=== PATIENT | male | born 1940 | race Caucasian/White ===

== ENCOUNTER 2017-08-08 09:44 | Emergency (ER) | payer MEDICARE ==
[2017-08-08] MEDS ORDERED: FAMOTIDINE 20 MG/2 ML VIAL IV STA (10:05)
[2017-08-08] MEDS ORDERED: methylPREDNISolone SOD SUCCI 125 MG/2 ML VIAL IV STA (10:05)
[2017-08-08] MEDS ORDERED: diphenhydrAMINE 50 MG/ML 1 ML VIAL IVP STA (10:05)
--- NOTE | 2017-08-08 10:20 | ED ---
General Adult HPI - General Chief complaint: Allergic Reaction Stated complaint: Allergic reaction Time Seen by Provider: 08/08/17 09:58 Source: patient, family, RN notes reviewed Mode of arrival: ambulatory Limitations: no limitations - History of Present Illness Initial comments: Patient is a 76-year-old male who presents emergency room today with a chief complaint of hives. He does admit that symptoms started 2 days ago. States that he didn't or it began having a little cough later in the night. States he woke up in the middle of night with rash to his back and abdomen. States he did go to an urgent care. States he was given a shot steroids. States been taking Benadryl last dose was at 1 AM. States that he's been on a Medrol Dosepak to 1 pill this morning. Patient does admit to some irritation to his throat. Patient denies any other complaints or symptoms. Denies any difficulty breathing or swallowing. Patient denies any recent fever, chills, shortness of breath, chest pain, back pain, abdominal pain, nausea or vomiting, numbness or tingling, dysuria or hematuria, constipation or diarrhea, headaches or visual changes, or any other complaints. - Related Data Home Medications Medication Instructions Recorded Confirmed Ibuprofen [Motrin Ib] 800 mg PO TID PRN 08/08/17 08/08/17 Lisinopril [Zestril] 20 mg PO DAILY 08/08/17 08/08/17 Previous Rx's Medication Instructions Recorded predniSONE 20 mg PO BID #10 tab 08/08/17 Allergies Allergy/AdvReac Type Severity Reaction Status Date / Time No Known Allergies Allergy Verified 08/08/17 10:40 Review of Systems ROS Statement: Those systems with pertinent positive or pertinent negative responses have been documented in the HPI. ROS Other: All systems not noted in ROS Statement are negative. Past Medical History Past Medical History: Hypertension Additional Past Medical History / Comment(s): back pain History of Any Multi-Drug Resistant Organisms: None Reported Past Surgical History: Appendectomy, Orthopedic Surgery Additional Past Surgical History / Comment(s): cataract surgery, both knees replaced Past Psychological History: No Psychological Hx Reported Smoking Status: Never smoker Past Alcohol Use History: None Reported Past Drug Use History: None Reported General Exam - General Exam Comments Initial Comments: General: The patient is awake and alert, in no distress, and does not appear acutely ill. Eye: Pupils are equal, round and reactive to light, extra-ocular movements are intact. No nystagmus. There is normal conjunctiva bilaterally. No signs of icterus. Ears, nose, mouth and throat: There are moist mucous membranes and no oral lesions. Uvula midline. Patient's also difficulty. Tolerating oral secretions. Neck: The neck is supple, there is no tenderness or JVD. Cardiovascular: There is a regular rate and rhythm. No murmur, rub or gallop is appreciated. Respiratory: Lungs are clear to auscultation, respirations are non-labored, breath sounds are equal. No wheezes, stridor, rales, or rhonchi. Musculoskeletal: Normal ROM, no tenderness. Strength 5/5. Sensation intact. Pulses equal bilaterally 2+. Neurological: A&O x 3. CN II-XII intact, There are no obvious motor or sensory deficits. Coordination appears grossly intact. Speech is normal. Skin: The patient does have red raised hives to both anterior and posterior trunk. Psychiatric: Cooperative, appropriate mood & affect, normal judgment. Limitations: no limitations Course Vital Signs 08/08/17 09:48 Temperature 96.8 F L Pulse Rate 95 Respiratory 20 Rate Blood Pressure 158/80 O2 Sat by Pulse 99 Oximetry Medical Decision Making - Medical Decision Making Patient reexamined at this time shows no signs of distress. Vitals are stable. Patient's rash improved. Will be changed from Medrol Dosepak to prednisone. Patient advised continue Benadryl one to 2 tabs every 6 hours. Advised continue Pepcid at home. Advised follow-up family doctor over the next 2 days. Advised return here to emergency room if any symptoms increase or worsen or for concerns. Disposition Clinical Impression: Allergic reaction Disposition: HOME SELF-CARE Condition: Good Instructions: Urticaria (ED) Additional Instructions: Please continue Benadryl one to 2 tabs every 6 hours. Please continue Pepcid twice daily. Please use prednisone as prescribed and discontinue Medrol Dosepak. Please follow-up with family doctor in the next 2 days of symptoms have not improved. Please return to emergency room if the symptoms increase or worsen or for any other concerns. Prescriptions: predniSONE 20 mg PO BID #10 tab Referrals: Stephen De Leon MD [Primary Care Provider] - 1-2 days Time of Disposition: 11:43
[2017-08-08 11:55] VITALS: BP 160/79; PULSE 68; RESP 16; TEMP 97
== END 2017-08-08 11:50 | disposition home or self-care (01) ==
LOC: EC 09:44
DX: L50.9 Urticaria, unspecified (principal); T38.0X5A Adverse effect of glucocorticoids and synthetic analogues, initial encounter; I10 Essential (primary) hypertension; Z79.899 Other long term (current) drug therapy
CPT/HCPCS: 99283; 96374; 96375 ×2; J1200; J2930

== ENCOUNTER → 2018-01-06 | Outpatient (CLI) | payer MEDICARE ==
--- NOTE | 2018-01-06 10:21 | XR ---
EXAMINATION TYPE: XR Hip Complete LT DATE OF EXAM: 01/06/2018 CLINICAL HISTORY: pain TECHNIQUE: AP and frogleg views of the left hip are obtained. COMPARISON: None. FINDINGS: There is no acute fracture/dislocation evident. The joint space appears moderately narro wed.. The overlying soft tissue appears unremarkable. IMPRESSION: 1. There is no acute fracture or dislocation.ICD 10 NO FRACTURE, INITIAL EVALUATION
== END | disposition home or self-care (01) ==
LOC: RADXRMAIN 09:51
PROVIDERS: ATTEND Family Medicine
DX: M25.552 Pain in left hip (principal)
CPT/HCPCS: 73502

== ENCOUNTER 2018-01-09 12:34 | Emergency (ER) | payer MEDICARE ==
[2018-01-09 13:16] VITALS: BP 134/77; PULSE 71; RESP 18; TEMP 98.3
[2018-01-09] MEDS ORDERED: DEXAMETHASONE SOD PHOSPHATE 10 MG/ML 1 ML VIAL IM STA (14:40)
[2018-01-09] MEDS ORDERED: KETOROLAC 30 MG/ML 1 ML VIAL IM STA (14:42)
--- NOTE | 2018-01-09 14:42 | ED ---
Extremity Problem HPI <Jairon Glover - Last Filed: 01/09/18 15:26> - General Source: patient Mode of arrival: ambulatory Limitations: no limitations <Gilda Ram - Last Filed: 01/09/18 15:28> - General Chief complaint: Extremity Problem,Nontraumatic Stated complaint: hip pain Time Seen by Provider: 01/09/18 14:01 - History of Present Illness Initial comments: This is a 77-year-old male with past medical history of hypertension currently controlled who presents today for chief complaint of acute hip pain on chronic for the past 3 weeks. Patient states that the pain started 3 weeks ago and is is in the left hip with occasional radiation down the left leg. That is worse with walking and certain positions. She denies any numbness tingling, paresthesias or low back pain. Patient has been seeing his primary care Dr. Maher and ABDOUL Urena who had x-ray performed 01/06/2018 for left hip pain. He was told that he has arthritis of the left hip and there is moderate narrowing of the joint space. He is also following [facility]. He presents today because he he states that the pain is actually in 3 weeks and he is now having difficulty sleeping. It has not changed in characteristic since its onset 3 weeks ago. He denies any current low back pain , trauma, falls or previous fractures of the left hip. He states he is hoping that he could get some sort of injection in this hip for relief to get him through the summer. He has been taking ibuprofen 800mg at home for pain relief which is minimally. Upon presentation to the emergency department vital signs stable. Patient denies any recent fever, chills, shortness of breath, chest pain, back pain, abdominal pain, nausea or vomiting, numbness or tingling , dysuria or hematuria, constipation or diarrhea, headaches or visual changes, or any other complaints. (Gilda Ram) - Related Data Home Medications Medication Instructions Recorded Confirmed Ibuprofen [Motrin Ib] 800 mg PO TID PRN 08/08/17 08/08/17 Lisinopril [Zestril] 20 mg PO DAILY 08/08/17 08/08/17 Previous Rx's Medication Instructions Recorded predniSONE 20 mg PO BID #10 tab 08/08/17 Allergies Allergy/AdvReac Type Severity Reaction Status Date / Time No Known Allergies Allergy Verified 01/09/18 13:16 Review of Systems ROS Other: All systems not noted in ROS Statement are negative. <AdalbertoJairon - Last Filed: 01/09/18 15:26> ROS Other: All systems not noted in ROS Statement are negative. Constitutional: Denies: weight change, night sweats Respiratory: Denies: dyspnea Gastrointestinal: Denies: abdominal pain, diarrhea, constipation Genitourinary: Denies: dysuria, frequency Musculoskeletal: Reports: as per HPI, arthralgia. Denies: back pain, joint swelling Skin: Denies: rash, change in color Neurological: Reports: as per HPI. Denies: headache, numbness, paresthesias, abnormal gait <Gilda Ram - Last Filed: 01/09/18 15:28> ROS Statement: Those systems with pertinent positive or pertinent negative responses have been documented in the HPI. Past Medical History Past Medical History: Hypertension Additional Past Medical History / Comment(s): back pain History of Any Multi-Drug Resistant Organisms: None Reported Past Surgical History: Appendectomy, Orthopedic Surgery Additional Past Surgical History / Comment(s): cataract surgery, both knees replaced Past Psychological History: No Psychological Hx Reported Smoking Status: Never smoker Past Alcohol Use History: None Reported Past Drug Use History: None Reported <Gilda Ram - Last Filed: 01/09/18 15:28> General Exam Limitations: no limitations <Gilda Ram - Last Filed: 01/09/18 15:28> Course <Jairon Glover - Last Filed: 01/09/18 15:26> <Gilda Ram - Last Filed: 01/09/18 15:28> Vital Signs 01/09/18 13:13 Temperature 98.3 F Pulse Rate 71 Respiratory 18 Rate Blood Pressure 134/77 O2 Sat by Pulse 98 Oximetry - Reevaluation(s) Reevaluation #1: 01/09/18 15:24 PA supervision: I did proceed a [id number] evaluation the patient did discuss findings with him. Patient complains of right hip pain is been going on for several weeks. No new trauma no loss of function no other reported problems at this time. I did discuss case with the PA as well as with the patient did evaluate the findings and do agree with the assessment and plan. The patient does have plans for follow-up with orthopedics. (Jairon Glover) Medical Decision Making <Jairon Glover - Last Filed: 01/09/18 15:26> <Gilda Ram - Last Filed: 01/09/18 15:28> - Medical Decision Making Mr. Cooley is a 77-year-old male with past medical history of controlled hypertension who presents today for chief complaint of left hip pain 3 weeks. Patient states that he has had left hip pain in the past but has been increasing for the past 3 weeks. He is following his primary care physician for this complaint ordered x-rays performed on 01/06/2018. He stated that he is also [facility] Dr[facility]. Patient states that he has osteoarthritis the left hip. I reviewed the x-rays performed on the which revealed moderate narrowing of the joint space. With no acute processes. In addition I reviewed a recent lumbar MRI that was performed ... Which revealed a bulging disc L5 through S1 with moderate thecal sac compression, no AP spinal stenosis. However patient denies any current back pain, loss of bowel or bladder control, saddle anesthesia, or numbing tingling of the lower extremities. Neurovascular exam of the LE unremarkable. Muscular skeletal examination of the left leg is unremarkable, patient was able to fully range the hip, ambulate with normal gait, 5/5 muscle strength in the lower extremities bilaterally with full sensation, there is no erythema of the overlying joint. Patient was requesting a cortisone shot to the left hip, etc. however him a Decadron intramuscular injection 10 mg perforation as well as a 30 mg IM injection of Toradol for pain relief. I discuss with patient that he will need to follow up with his primary care or [facility] for further care within the next 1-2 days. Patient is to return to the emergency department if symptoms worsen. I discussed this case with Dr. Frank who agree with the plan. (Gilda Ram) Disposition Is patient prescribed a controlled substance at d/c from ED?: No <AdalbertoJairon - Last Filed: 01/09/18 15:26> Is patient prescribed a controlled substance at d/c from ED?: No Time of Disposition: 15:22 <Gilda Ram - Last Filed: 01/09/18 15:28> Clinical Impression: Hip pain, left Disposition: HOME SELF-CARE Condition: Good Instructions: Osteoarthritis (ED), Hip Pain (ED) Additional Instructions: Please use medication as discussed. Please follow-up with family doctor in the next 2 days of symptoms have not improved. Please return to emergency room if the symptoms increase or worsen or for any other concerns. Referrals: Stephen De Leon MD [Primary Care Provider] - 1-2 days
== END 2018-01-09 15:28 | disposition home or self-care (01) ==
LOC: EC 12:34
DX: M25.552 Pain in left hip (principal); I10 Essential (primary) hypertension; Z79.899 Other long term (current) drug therapy
CPT/HCPCS: 99283; 96372 ×2; J1100; J1885

== ENCOUNTER 2018-01-11 11:02 | Emergency (ER) | payer MEDICARE ==
[2018-01-11] MEDS ORDERED: KETOROLAC 30 MG/ML 1 ML VIAL IM STA (11:18)
--- NOTE | 2018-01-11 11:29 | ED ---
Extremity Problem HPI - General Chief complaint: Extremity Problem,Nontraumatic Stated complaint: Leg/Hip Pain Time Seen by Provider: 01/11/18 11:07 Source: patient, RN notes reviewed, old records reviewed Mode of arrival: wheelchair Limitations: no limitations - History of Present Illness Initial comments: 77 year old male with reelvaulationfor left hip pain. He was seen 2 days ago and reported relief after dexamethasone and toradol, requesting more injections today. He has been diagnosed with L hip arthritis, and patient has had xrays and is following up with Ortho this upcoming week. He has been using motrin 600 frequently. Patient denies any falls. Denies fever or chills, saddle anestheseias. - Related Data Home Medications Medication Instructions Recorded Confirmed Ibuprofen [Motrin Ib] 800 mg PO TID PRN 08/08/17 08/08/17 Lisinopril [Zestril] 20 mg PO DAILY 08/08/17 08/08/17 Previous Rx's Medication Instructions Recorded predniSONE 20 mg PO BID #10 tab 08/08/17 Acetaminophen with Codeine 1 tab PO Q6H PRN 3 Days #12 tab 01/11/18 [Tylenol w/codeine #3] Allergies Allergy/AdvReac Type Severity Reaction Status Date / Time No Known Allergies Allergy Verified 01/11/18 11:06 Review of Systems ROS Statement: Those systems with pertinent positive or pertinent negative responses have been documented in the HPI. ROS Other: All systems not noted in ROS Statement are negative. Past Medical History Past Medical History: Hypertension Additional Past Medical History / Comment(s): back pain History of Any Multi-Drug Resistant Organisms: None Reported Past Surgical History: Appendectomy, Orthopedic Surgery Additional Past Surgical History / Comment(s): cataract surgery, both knees replaced Past Psychological History: No Psychological Hx Reported Smoking Status: Never smoker Past Alcohol Use History: None Reported Past Drug Use History: None Reported General Exam Limitations: no limitations General appearance: alert, in no apparent distress Head exam: Present: atraumatic, normocephalic, normal inspection Eye exam: Present: normal appearance, PERRL, EOMI. Absent: scleral icterus, conjunctival injection, periorbital swelling ENT exam: Present: normal exam, mucous membranes moist Neck exam: Present: normal inspection. Absent: tenderness, meningismus, lymphadenopathy Respiratory exam: Present: normal lung sounds bilaterally. Absent: respiratory distress, wheezes, rales, rhonchi, stridor Cardiovascular Exam: Present: regular rate, normal rhythm, normal heart sounds. Absent: systolic murmur, diastolic murmur, rubs, gallop, clicks GI/Abdominal exam: Present: soft, normal bowel sounds. Absent: distended, tenderness, guarding, rebound, rigid Extremities exam: Present: normal inspection, full ROM, normal capillary refill. Absent: tenderness, pedal edema, joint swelling, calf tenderness Back exam: Present: normal inspection Neurological exam: Present: alert, oriented X3, CN II-XII intact Psychiatric exam: Present: normal affect, normal mood Skin exam: Present: warm, dry, intact, normal color. Absent: rash Course Vital Signs 01/11/18 01/11/18 11:04 12:00 Temperature 98.0 F 98.2 F Pulse Rate 77 69 Respiratory 20 16 Rate Blood Pressure 128/74 119/67 O2 Sat by Pulse 100 97 Oximetry Medical Decision Making - Medical Decision Making 77 year old male with left hip arthritis. He is requesting another toradol and steriod shot. He had these 2 days ago, xrays completed at that time as well. Patient will be given toradol, no further steriod. Patient will be discharged with stronger pain medications until he can follow up with PCP and ortho. Patient agree to treatment plan and return parameters discussed. Disposition Clinical Impression: Chronic left hip pain Disposition: HOME SELF-CARE Condition: Good Instructions: Osteoarthritis (ED) Additional Instructions: Patient advised to follow-up with primary care physician and senior tax specialist. Continue to take Motrin. Take the medication as prescribed. Prescriptions: Acetaminophen with Codeine [Tylenol w/codeine #3] 1 tab PO Q6H PRN 3 Days #12 tab PRN Reason: Pain Is patient prescribed a controlled substance at d/c from ED?: Yes When asked, does pt state using other controlled substances?: No If prescribed controlled substance>3 days was MAPS reviewed?: Prescribed <3 Days If opioid is for acute pain is fill amount 7 days or less?: Yes If Rx opioid, was Start Talking consent form obtained?: Yes Referrals: Stephen De Leon MD [Primary Care Provider] - 1-2 days Time of Disposition: 11:28
[2018-01-11 12:01] VITALS: BP 119/67; PULSE 69; RESP 16; TEMP 98.2
== END 2018-01-11 12:01 | disposition home or self-care (01) ==
LOC: EC 11:02
DX: G89.29 Other chronic pain (principal); M79.642 Pain in left hand; I10 Essential (primary) hypertension; Z79.899 Other long term (current) drug therapy; Z96.653 Presence of artificial knee joint, bilateral
CPT/HCPCS: 99283; 96372; J1885

== ENCOUNTER → 2018-01-13 | Outpatient (CLI) | payer MEDICARE ==
--- NOTE | 2018-01-13 18:02 | XR ---
EXAMINATION TYPE: XR orbit detect foreign body DATE OF EXAM: 01/13/2018 COMPARISON: NONE HISTORY: MRI screening exam retina surgery. TECHNIQUE: 4 views FINDINGS: There is irregular 6 x 2 mm metallic density within the right orbit at the superior aspect. It is not clear if this is within the globe. The remainder of exam is unremarkable. IMPRESSION: Right-sided intraorbital metal foreign body as above.
== END | disposition home or self-care (01) ==
LOC: RADXRMAIN 16:18
PROVIDERS: ATTEND Physical Medicine & Rehabilitation
DX: S05.41XA Penetrating wound of orbit with or without foreign body, right eye, initial encounter (principal)
CPT/HCPCS: 70030

== ENCOUNTER → 2018-01-22 | Outpatient (CLI) | payer MEDICARE ==
--- NOTE | 2018-01-22 15:49 | CT ---
EXAMINATION TYPE: CT lumbar spine wo con DATE OF EXAM: 01/22/2018 3:22 PM COMPARISON: MRI lumbar spine dated 07/11/2016 HISTORY: Spinal canal stenosis. Radiculopathy. Back pain. CT DLP: 1199.0 mGycm Automated exposure control for dose reduction was used. TECHNIQUE: Unenhanced CT of the lumbar spine was performed. Bone and soft tissue window settings are submitted as well as coronal and sagittal reconstructions. FINDINGS: There are rudimentary ribs from L1 vertebral body and ligament or disc at S1-S2. No evidenc e of vertebral body height loss or malalignment. L1-L2: There is a small broad-based disc bulge without significant spinal canal stenosis or neural fo raminal narrowing. L2-L3: There is intervertebral disc desiccation, a small broad-based disc bulge, and mild facet arthr opathy resulting in mild bilateral neural foraminal narrowing and without significant spinal canal st enosis. L3-L4: There is a small broad-based disc bulge and narrowing of the ventral subarachnoid space indica tive of mild spinal canal stenosis. The disc bulges right eccentric and creates moderate right neural foraminal narrowing and mild left neural foraminal narrowing. L4-L5: There is a broad-based disc bulge with ligamentum flavum buckling and mild facet arthropathy c reating moderate bilateral neural foraminal narrowing and mild spinal canal stenosis. L5-S1: There is a small central disc herniation superimposed upon a broad-based disc bulge in combina tion with facet arthropathy creating severe left neural foraminal narrowing and moderate to severe ri ght neural foraminal narrowing as well as mild spinal canal stenosis. IMPRESSION: 1. Progression of degenerative comparison to the prior MRI of 2016. New central disc herniation at L5 -S1 in combination with degenerative changes creating severe left and moderate to severe right neural foraminal narrowing and mild spinal canal stenosis. 2. Degenerative disc disease also creates multilevel variable degree neural foraminal narrowing as de scribed above and mild spinal canal stenosis at L3-L4 and L4-L5.
== END | disposition home or self-care (01) ==
LOC: RADCTMAIN 14:35
PROVIDERS: ATTEND Physical Medicine & Rehabilitation
DX: M51.17 Intervertebral disc disorders with radiculopathy, lumbosacral region (principal); M48.061 Spinal stenosis, lumbar region without neurogenic claudication; M47.27 Other spondylosis with radiculopathy, lumbosacral region; M99.73 Connective tissue and disc stenosis of intervertebral foramina of lumbar region; M16.0 Bilateral primary osteoarthritis of hip
CPT/HCPCS: 72131

== ENCOUNTER 2018-09-24 17:28 | Emergency (ER) | payer MEDICARE ==
[2018-09-24 17:43] VITALS: BP 156/90; RESP 18; TEMP 98.8
--- NOTE | 2018-09-24 18:00 | ED ---
General Adult HPI - General Chief complaint: Skin/Abscess/Foreign Body Stated complaint: facial swelling Time Seen by Provider: 09/24/18 17:44 Source: patient Mode of arrival: ambulatory Limitations: no limitations - History of Present Illness Initial comments: Dictation was produced using [employer] dictation software. please excuse any g rammatical, word or spelling errors. Chief Complaint: 79-year-old male presents with chief complaint of facial rash. History of Present Illness: Patient is a 69-year-old male presents with chief complaint of facial rash. Patient states he was shaving when immediately after the in no 6 of redness immediately lateral to the right naris. He states that he brought an dyah-bbu-kxawblm triple antibiotic cream and began applying to the face. States that the rash began spritzing under his eye and towards his upper lip. States that all his symptoms are on the right of his face including the inner part of his mouth. He denies any changes or new antibiotics. Patient states that there is some discomfort however no pain to the site. He believes he is having ALLERGIC reaction to the triple antibiotic ointment cream. The ROS documented in this emergency department record has been reviewed and confirmed by me. Those systems with pertinent positive or negative responses have been documented in the HPI. All other systems are other negative and/or noncontributory. PHYSICAL EXAM: General Impression: Alert and oriented x3, not in acute distress HEENT: Normocephalic atraumatic, extra-ocular movements intact, pupils equal and reactive to light bilaterally, mucous membranes moist. Cardiovascular: Heart regular rate and rhythm, S1&S2 audible, no murmurs, rubs or gallops Chest: Lungs clear to auscultation bilaterally, no rhonchi, no wheeze, no rales Abdomen: Bowel sounds present, abdomen soft, non-tender, non-distended, no organomegaly Musculoskeletal: Pulses present and equal in all extremities, no peripheral edema Motor: no focal deficits noted Neurological: CN II-XII grossly intact, no focal motor or sensory deficits noted Skin: Erythematous nonraised rash to the right face extending from the axillary area to the right glabella. Intraorally there are some punctate rashes to the gingiva. These rashes do not cross the midline to the left side. Nontender, minimally indurated, no drainage Psych: Normal affect and mood ED course: 77-year-old male presents with right facial rash. All signs upon arrival are within acceptable limits. Rash appears to not cross the midline. Rash appears to be consistent with local reaction however trigeminal neuralgia is part of the differential. Patient prescription for Keflex. He still to follow-up with his primary care physician or return to the emergency department if he feels his rash is not improving. Told that isn't improved he should be started on steroids and antiviral medications treating trigeminal neuralgia. Patient understandable agreeable to plan. - Related Data Home Medications Medication Instructions Recorded Confirmed Ibuprofen [Motrin Ib] 800 mg PO TID PRN 08/08/17 08/08/17 Lisinopril [Zestril] 20 mg PO DAILY 08/08/17 08/08/17 Previous Rx's Medication Instructions Recorded predniSONE 20 mg PO BID #10 tab 08/08/17 Acetaminophen with Codeine 1 tab PO Q6H PRN 3 Days #12 tab 01/11/18 [Tylenol w/codeine #3] Allergies Allergy/AdvReac Type Severity Reaction Status Date / Time No Known Allergies Allergy Verified 09/24/18 17:43 Review of Systems ROS Statement: Those systems with pertinent positive or pertinent negative responses have been documented in the HPI. ROS Other: All systems not noted in ROS Statement are negative. Past Medical History Past Medical History: Hypertension Additional Past Medical History / Comment(s): back pain History of Any Multi-Drug Resistant Organisms: None Reported Past Surgical History: Appendectomy, Orthopedic Surgery Additional Past Surgical History / Comment(s): cataract surgery, both knees replaced Past Psychological History: No Psychological Hx Reported Smoking Status: Never smoker Past Alcohol Use History: None Reported Past Drug Use History: None Reported General Exam Limitations: no limitations Course Vital Signs 09/24/18 17:40 Temperature 98.8 F Pulse Rate 82 Respiratory 18 Rate Blood Pressure 156/90 O2 Sat by Pulse 97 Oximetry Disposition Clinical Impression: Contact dermatitis Disposition: HOME SELF-CARE Condition: Good Instructions (If sedation given, give patient instructions): Dermatitis (ED) Is patient prescribed a controlled substance at d/c from ED?: No Referrals: Stephen De Leon MD [Primary Care Provider] - 1-2 days Time of Disposition: 18:00
--- NOTE | 2018-09-24 18:03 | ED ---
Disposition Clinical Impression: Contact dermatitis Disposition: HOME SELF-CARE Condition: Good Instructions (If sedation given, give patient instructions): Dermatitis (ED) Prescriptions: Cephalexin [Keflex] 500 mg PO Q6HR 5 Days #20 cap Is patient prescribed a controlled substance at d/c from ED?: No Referrals: Stephen De Leon MD [Primary Care Provider] - 1-2 days Time of Disposition: 18:03
--- NOTE | 2018-09-24 18:04 | ED ---
Disposition Clinical Impression: Contact dermatitis Disposition: HOME SELF-CARE Condition: Good Instructions (If sedation given, give patient instructions): Dermatitis (ED) Prescriptions: diphenhydrAMINE & Zinc Cream [Benadryl Cream] 1 applic TOPICAL BID #1 tube Cephalexin [Keflex] 500 mg PO Q6HR 5 Days #20 cap Is patient prescribed a controlled substance at d/c from ED?: No Referrals: Stephen De Leon MD [Primary Care Provider] - 1-2 days Time of Disposition: 18:04
[2018-09-24 18:17] VITALS: PULSE 75
== END 2018-09-24 18:15 | disposition home or self-care (01) ==
LOC: EC 17:28
DX: L25.9 Unspecified contact dermatitis, unspecified cause (principal); I10 Essential (primary) hypertension; Z96.653 Presence of artificial knee joint, bilateral; Z79.899 Other long term (current) drug therapy
CPT/HCPCS: 99283